=== PATIENT | female | born 1945 | race Caucasian/White ===

== ENCOUNTER 2022-03-10 15:22 | Emergency (ER) | payer MEDICARE, BC ==
[~2022-03-10] VITALS: Ht 175.3 cm; Wt 95.3 kg
--- NOTE | 2022-03-10 15:52 | NUR ---
at bedside to examine pt.
[2022-03-10] MEDS ORDERED: KETOROLAC TROMETHAMINE 15 MG INJ IVP ONE (16:15)
[2022-03-10] MEDS ORDERED: LIDOCAINE 5% PATCH TD ONE ×2 (16:15→16:20)
[2022-03-10] MEDS ORDERED: KETOROLAC TROMETHAMINE 15 MG INJ ONE (16:21)
[2022-03-10] MEDS ORDERED: KETOROLAC TROMETHAMINE 15 MG INJ IM ONE (16:30)
--- NOTE | 2022-03-10 17:16 | NUR ---
spoke with pt's dad who decided to take pt. AMA. before next recommended lab draw.
--- NOTE | 2022-03-10 17:20 | NUR ---
Pt's dad decided to stay after been informed that pt. needs to go through admission if decides to come back for lab draw.
[2022-03-10] MEDS ORDERED: LIDO1ADH82 TP (17:21)
[2022-03-10] MEDS ORDERED: IBUP-1955 PO (17:21)
[2022-03-10] MEDS ORDERED: METH-807 PO (17:21)
--- NOTE | 2022-03-10 17:24 | NUR ---
DCD instructions given to pt. who verbalized understanding. pt. left room ambulatory steady gait. AAOx4. No c/o pain.
== END 2022-03-10 17:30 | disposition home or self-care (01) ==
LOC: ER 15:22
DX: M51.27 Other intervertebral disc displacement, lumbosacral region (principal); M51.36 Other intervertebral disc degeneration, lumbar region; M48.061 Spinal stenosis, lumbar region without neurogenic claudication; I10 Essential (primary) hypertension; Z91.013 Allergy to seafood; Z90.710 Acquired absence of both cervix and uterus; M48.56XA Collapsed vertebra, not elsewhere classified, lumbar region, initial encounter for fracture
CPT/HCPCS: 99284; 72131; 96372; J1885; A4663